=== PATIENT | female | born 1955 | race Caucasian/White ===

== ENCOUNTER 2016-09-11 05:50 | Day surgery (SDC) | payer OTHER ==
[2016-09-09 13:06] LABS: BASOPHILS % (AUTO) 0.4 % (0.0-2.0); EOSINOPHILS # (AUTO) 0.1 K/uL (0.0-0.4); EOSINOPHILS % (AUTO) 1.2 % (0.0-4.0); HEMATOCRIT 35.4 % (36-48); LYMPHOCYTES # (AUTO) 3.1 K/uL (1.0-5.5); LYMPHOCYTES % (AUTO) 29.2 % (20.5-51.5); MEAN CORPUSCULAR HEMOGLOBIN 23 pg (27-31); MEAN CORPUSCULAR HGB CONC 31 % (32-36); MEAN CORPUSCULAR VOLUME 72 fL (79.0-98.0); MONOCYTES # (AUTO) 0.8 K/uL (0.0-1.0); NEUTROPHILS # (AUTO) 6.8 K/uL (1.8-7.7); NEUTROPHILS % (AUTO) 62.2 % (40.0-70.0); PLATELET COUNT (AUTO) 338 K/uL (130-430); RED BLOOD CELL COUNT(AUTO) 4.92 MIL/uL (4.2-6.2); RED CELL DISTRIBUTION WIDTH 15.1 % (9.0-15.0); WHITE BLOOD COUNT (AUTO) 10.8 K/uL (4.8-10.8)
[2016-09-09 13:07] LABS: HEMOGLOBIN 11.1 g/dL (12.0-16.0)
[2016-09-09 13:11] LABS: BILIRUBIN,URINE NEGATIVE (NEGATIVE); BLOOD, URINE 3+ (NEGATIVE); CLARITY/URINE SL HAZY (CLEAR); COLOR,URINE YELLOW (YELLOW); GLUCOSE,URINE NEGATIVE (NEGATIVE); KETONES,URINE NEGATIVE (NEGATIVE); LEUKOCYTE ESTERASE ,URINE 1+ (NEGATIVE); NITRITE, URINE NEGATIVE (NEGATIVE); PH,URINE 5.5 (5.0-8.0); PROTEIN URINE NEGATIVE (NEGATIVE); UROBILINOGEN,URINE 0.2 (0.2-1.0)
[2016-09-09 13:12] LABS: CREATININE 1.04 mg/dL (0.55-1.30)
[2016-09-09 13:24] LABS: BACTERIA,URINE MODERATE /HPF (None Seen)
[~2016-09-11] VITALS: Ht 157.5 cm; Wt 100.7 kg
[2016-09-11] MEDS ORDERED: CEFAZOLIN SOD 1 GM/ ISO 50 ML PREMIX IV ONE (07:00)
[2016-09-11] MEDS ORDERED: KETOROLAC TROMETHAMINE 30 MG VIAL IVP ONE (07:01)
[2016-09-11] MEDS ORDERED: fentaNYL CITRATE/PF 100 MCG/2 ML AMP IVP ONE (07:01)
[2016-09-11] MEDS ORDERED: MIDAZOLAM HCL 5 MG/5 ML VIAL IVP ONE (07:01)
[2016-09-11] MEDS ORDERED: NS 1000 ML BAG IV ONE (07:01)
[2016-09-11] MEDS ORDERED: SEVOFLURANE 15 MIN GAS INH ONE (07:01)
[2016-09-11] MEDS ORDERED: ONDANSETRON HCL 4 MG/2 ML VIAL IVP ONE (07:01)
[2016-09-11] MEDS ORDERED: LR 1,000 ML IV SCH (07:56)
[2016-09-11] MEDS ORDERED: ONDANSETRON HCL 4 MG/2 ML VIAL IVP PRN ×2 (08:00)
[2016-09-11] MEDS ORDERED: HYDROmorphone 2 MG/ML VIAL IVP PRN (08:00)
[2016-09-11] MEDS ORDERED: HYDROmorphone 1 MG INJ. 1 MG/ML AMPUL IVP PRN (08:00)
[2016-09-11] MEDS ORDERED: MEPERIDINE HCL/PF 25 MG/ML DISP.SYRIN IVP PRN ×2 (08:00)
[2016-09-11] MEDS ORDERED: KETOROLAC TROMETHAMINE 30 MG VIAL IVP PRN (08:00)
[2016-09-11] MEDS ORDERED: OXYCODONE/ACETAMINOPHEN 5-325 TABLET PO PRN (08:00)
[2016-09-11] MEDS ORDERED: HYDROcodone/ACETAMIN 5-325 MG TAB (NORCO/ VICODIN) PO PRN (08:00)
[2016-09-11 09:42] VITALS: BP_SYST 102
== END 2016-09-11 11:05 | disposition home or self-care (01) ==
LOC: SDS 05:50 → SMU 05:50 → SDS 11:05
PROVIDERS: ATTEND Specialist
DX: N84.0 Polyp of corpus uteri (principal); E11.9 Type 2 diabetes mellitus without complications; E03.9 Hypothyroidism, unspecified; E66.01 Morbid (severe) obesity due to excess calories; I25.10 Atherosclerotic heart disease of native coronary artery without angina pectoris
CPT/HCPCS: 36415; 58558; 80048; 81000; 85025; 87086; 88305; 93005; J0690; J1885; J2250; J2405; J3010; J7030; J7120

== ENCOUNTER 2023-06-29 05:36 | Day surgery (SDC) | payer OTHER ==
[~2023-06-29] VITALS: Ht 157.5 cm; Wt 95.3 kg
[2023-06-29] MEDS ORDERED: SIMETHICONE 40 MG/0.6 ML ML ONE (07:31)
[2023-06-29] MEDS ORDERED: MIDAZOLAM HCL 5 MG/5 ML VIAL ONE (07:32)
[2023-06-29] MEDS ORDERED: MEPERIDINE 100 MG INJ. 100 MG/ML VIAL ONE (07:32)
[2023-06-29 14:18] VITALS: O2SAT 96
[2023-06-29 14:37] VITALS: BP_SYST 132; PULSE 81; RESP 16
== END 2023-06-29 09:25 | disposition home or self-care (01) ==
LOC: SDS 05:36 → SMU 05:36 → SDS 09:25
PROVIDERS: ATTEND Internal Medicine Gastroenterology
DX: Z12.11 Encounter for screening for malignant neoplasm of colon (principal); K64.8 Other hemorrhoids; E11.9 Type 2 diabetes mellitus without complications; Z79.84 Long term (current) use of oral hypoglycemic drugs; Z79.899 Other long term (current) drug therapy
CPT/HCPCS: 45378; 99152; 82948; G0378; J2250; J2175